=== PATIENT | male | born 2000 | race Caucasian/White ===

== ENCOUNTER 2025-08-07 22:54 | Emergency (ER) | payer MEDICAID ==
[~2025-08-07] VITALS: Ht 188 cm; Wt 117.3 kg
[2025-08-07 23:05] VITALS: BP 146/98; PULSE 74; RESP 16; TEMP 97.905272; O2SAT 95
[2025-08-07] MEDS: ACETAMINOPHEN 500 MG TABLET PO ONE (23:14)
[2025-08-07] MEDS: IBUPROFEN 400 MG TABLET PO ONE (23:14)
[2025-08-08] MEDS: METOCLOPRAMIDE HCL 10 MG TABLET PO ONE (00:21)
[2025-08-08] MEDS ORDERED: METO5TAB95 PO (01:53)
== END 2025-08-08 02:12 | disposition home or self-care (01) ==
LOC: EMS 22:57
DX: G43.109 Migraine with aura, not intractable, without status migrainosus (principal); Z90.49 Acquired absence of other specified parts of digestive tract; Z91.018 Allergy to other foods
CPT/HCPCS: 99284; Z7502; Z7610